=== PATIENT | male | born 1985 | race African-American/Black ===

== ENCOUNTER 2017-09-24 18:33 | Emergency (ER) | payer OTHER ==
[~2017-09-24] VITALS: Ht 182.9 cm; Wt 81.0 kg
[2017-09-24 19:25] VITALS: BP 146/85
[2017-09-24] MEDS ORDERED: SODIUM CHLORIDE 0.9% 1,000 ML IV ONE (19:35)
[2017-09-24] MEDS ORDERED: LORAZEPAM 2MG/ML CPJ IV ONE (19:45)
== END 2017-09-24 19:40 | disposition left against medical advice (07) ==
LOC: ER 18:33
DX: F15.10 Other stimulant abuse, uncomplicated (principal); R00.0 Tachycardia, unspecified; R00.2 Palpitations; J45.909 Unspecified asthma, uncomplicated; F17.200 Nicotine dependence, unspecified, uncomplicated; Z88.0 Allergy status to penicillin
CPT/HCPCS: 93005; 99283; J7030